=== PATIENT | female | born 2000 | race Two or more races ===

== ENCOUNTER 2024-10-30 00:45 | Inpatient (IN) | payer MEDICAID, SELFPAY ==
[2024-10-30] VITALS (275 sets, daily range): BP systolic 114–191; BP diastolic 57–118; PULSE 63–124; RESP 16–100; TEMP 36.4–37.1; O2SAT 86–100; BMI 30.5; BMI 30.3
[2024-10-30 03:30] LABS: Basophils % (Auto) 0 % (0-2.5); Eosinophils # (Auto) 0.1 Thou/mm3 (0.0-0.5); Eosinophils % (Auto) 1 % (0-10); Hemoglobin 9.8 g/dL (12.0-16.0); Immature Granulocytes % (Auto) 0 % (0-0); Immature Granulocytes Auto 0.03 Thou/mm3 (0.00-0.00); Lymphocytes # (Auto) 1.5 Thou/mm3 (1.0-4.8); Lymphocytes % (Auto) 20 % (10-50); Mean Corpuscular HGB Conc 30.6 g/dl (31.0-37.0); Mean Corpuscular Hemoglobin 20.9 pg (25.0-35.0); Mean Corpuscular Volume 68 fL (80-100); Monocytes # (Auto) 0.9 Thou/mm3 (0.0-0.8); Monocytes % (Auto) 12 % (0-12); Neutrophils % (Auto) 66 % (37-80); Nucleated Red Blood Cell % 0 /100 WBC (0); Platelet Count 215 Thou/mm3 (140-440); RDW Standard Deviation 44.2 fL (36.4-46.3); Red Blood Count 4.68 Miln/mm3 (4.00-5.20); White Blood Count 7.6 Thou/mm3 (3.6-11.0)
--- NOTE | 2024-10-30 04:00 | PD.LDHP ---
Documentation for date of: 10/30/24 OB Labor/Induct. HPI History of Present Illness Chief complaint: 24 y/o 39w 3d presents in early labor at 3 cm : 2 Para: 0 Term pregnancies: 0 pregnancies: 0 Living children: 0 History of Abortions: Spontaneous and Elective: 0 History of Vaginal deliveries: 0 History of sections: No History of : No Date of last menstrual period: 02/02/24 Gestational Age (weeks): 39 Gestational Age (days): 3 Gestational age based on last menstrual period: 38 History of present illness: 24 y/o 39w 3d presents in early labor at 3 cm vertex, membranes intact. GBS is neg. Pt's has been unremarkable with the exception of anemia. Pt did test + for THC early in and has discontinued use. EFW 3500g History of Present Dating criteria: LMP confirmed by 1st trimester US Adequate Care: Yes Ultrasounds: normal 1st trimester US and normal mid trimester US Obstetrical complications: other (anemia) Labs Maternal Blood Type: O Pos Labs: Positive: Rubella Titre, Negative: RPR, Hepatitis B, HIV, Chlamydia, Gonorrhea and Group Beta Strep and Unknown: Herpes Type 1, Herpes Type 2 and Covid-19 Review of Systems Review of Systems Systems Reviewed: All systems reviewed, normal except as documented Past Medical History Surgical History SURGICAL: Negative Section Meds Home Medications and Allergies Allergies Allergy/AdvReac Type Severity Reaction Status Date / Time NKA* Allergy Uncoded 03/25/24 09:51 OB Exam Physical Exam Vital signs: Temp Pulse Resp BP Pulse Ox O2 Del Method 97.6 F 63 18 115/57 L 99 Room Air 10/30/24 01:28 10/30/24 06:57 10/30/24 02:38 10/30/24 06:57 10/30/24 01:28 10/30/24 01:28 Constitutional Constitutional: no acute distress Routine HEENT Exam Head: Present normocephalic and atraumatic Eye: Present EOMI, PERRL and normal accommodation ENT: Present mucous membranes moist Routine Neck Exam Neck: Present supple, full ROM and trachea midline Routine Respiratory Exam Respiratory: Absent respiratory distress Routine Cardiovascular Exam Cardiovascular: Present RRR Routine Abdominal Exam Abdominal: Present soft Comments: Gravid Uterus EFW 3500g Routine Exam External: Present normal urethra appearance; Absent lesions or lacerations Detailed Labor and Delivery Exam Dilation (cm): 3 Effacement (%): 70 Cervix position: posterior station: -3 Consistency: soft Presentation: Vertex Membranes: intact Amniotic fluid: clear Routine Extremities Exam Extremities: Present full ROM Routine Back/Spine/Pelvis Exam Back/Spine: Present full ROM Routine Skin Exam Skin: Present intact, dry and warm Routine Neurological Exam Neurological: Present alert, oriented X3 and CN II-XII intact Routine Psychiatric Exam Psychiatric: Present normal affect and normal thought process OB Results Labs 10/30/24 02:25 Labs: Short CBC 10/30/24 Range/Units 02:25 WBC 7.6 (3.6-11.0) Thou/mm3 Hgb 9.8 L (12.0-16.0) g/dL Hct 32.0 L (36.0-46.0) % Plt Count 215 (140-440) Thou/mm3 OB Assessment & Plan Assessment and Plan (1) Normal labor: Status: Acute (2) Anemia affecting in third trimester: Status: Acute (3) with 39 completed weeks gestation: Status: Acute Additional Plan Induction method: none Plan: augmentation, anticipate NVD and consult prangel Additional Plan Comment: Routine admit orders Consult anesthesia for an epidural Continuous EFM
[2024-10-30] MEDS: fentaNYL CIT INJ 50 mCg/ML AMP 2ML 100 MCG IV ×3 (04:03→19:10)
[2024-10-30 04:34] LABS: Syphilis Nonreactive (Nonreactive)
[2024-10-30] MEDS: RINGERS LACTATED 1000 ML 1,000 ML 100 ML IV ×3 (07:30→12:09)
--- NOTE | 2024-10-30 07:40 | PD.LDPN ---
Documentation for date of: 10/30/24 OB Labor Progress Note Pain Control Pain control: other (Requesting an epidural) Pelvic Exam Dilation (cm): 4 Effacement (%): 80 station: 0 Amniotic membrane status: Ruptured (AROM performed- clear fluids) Contractions Monitor mode: External Contraction frequency: 2-3 Contraction duration: 40-60 Contraction phase: Contraction Contraction intensity: Moderate Status status: Category l Assessment and Plan Assessment: other (Latent labor) Plan OB labor note: continuous present management Comments: AROM performed- clear fluids Consult anesthesia for an epidural Anticipate
[2024-10-30 10:56] LABS: Amphetamine/Metham Scrn,Ur OB Negative (Negative); Benzoylecgonine Screen, Ur OB Negative (Negative); Opiate Screen,Urine OB Negative (Negative); THC Screen,Urine OB Negative (Negative)
[2024-10-30] MEDS: LABETALOL INJ 5 MG/ML VIAL 20 ML 20 MG IVP (16:59)
--- NOTE | 2024-10-30 17:18 | ESPR_ITS ---
<Statement entered by Adarsh Terrell MD - 10/31/24 13:56> No information regarding the IV labetalol or BP was discussed with me untoil 2 hours after the labetalol was given. please see my note for details Documentation for date of: 10/30/24 OB Labor Progress Note Pain Control Pain control: epidural Pelvic Exam Dilation (cm): 5 Effacement (%): 90 station: 0 Amniotic membrane status: Ruptured (AROM performed- clear fluids) Contractions Monitor mode: External Contraction frequency: 2-3 Contraction duration: 40-80 Contraction phase: Contraction Contraction intensity: Moderate Status status: Category l Assessment and Plan Assessment: other (Latent labor) Plan OB labor note: begin Pitocin augmentation Comments: Pt is still uncomfortable, call Fortino to bolus or replace epidural If contractions space out, low dose pitocin per protocol IV labetalol protocol ordered for elevated BPs PIH labs ordered Anticipate
[2024-10-30 17:59] LABS: Collection Type, Urine Catheter; Squamous Epithelial Cell,Urine 0 /hpf (0-5)
[2024-10-30 18:02] LABS: Basophils % (Auto) 0 % (0-2.5); Eosinophils % (Auto) 0 % (0-10); Hematocrit 29.4 % (36.0-46.0); Immature Granulocytes % (Auto) 1 % (0-0); Immature Granulocytes Auto 0.07 Thou/mm3 (0.00-0.00); Lymphocytes # (Auto) 0.8 Thou/mm3 (1.0-4.8); Lymphocytes % (Auto) 6 % (10-50); Mean Corpuscular HGB Conc 30.6 g/dl (31.0-37.0); Mean Corpuscular Hemoglobin 21.2 pg (25.0-35.0); Mean Corpuscular Volume 69 fL (80-100); Monocytes # (Auto) 1.1 Thou/mm3 (0.0-0.8); Monocytes % (Auto) 8 % (0-12); Neutrophils # (Auto) 11.4 Thou/mm3 (1.8-7.7); Neutrophils % (Auto) 85 % (37-80); Nucleated Red Blood Cell % 0 /100 WBC (0); Platelet Count 177 Thou/mm3 (140-440); Red Blood Count 4.24 Miln/mm3 (4.00-5.20); White Blood Count 13.4 Thou/mm3 (3.6-11.0)
[2024-10-30 18:03] LABS: Bilirubin,Urine Negative (Negative); Blood,Urine Negative (Negative); Clarity,Urine Clear (Clear/Hazy); Color,Urine Colorless (Lt Yel-Yel); Glucose, Urine Negative (Negative); Ketones,Urine 1+ (Negative); Leukocyte Esterase,Urine Negative (Negative); Nitrite,Urine Negative (Negative); PH,Urine 6.5 (5.0-7.0); Protein,Urine Negative (Neg - Trace); RBC,Urine 1 /hpf (0-3); Specific Gravity,Urine 1.006 (1.001-1.035); Urobilinogen,Urine Negative mg/dL (0.0-1.0); WBC,Urine 1 /hpf (0-5)
[2024-10-30 19:03] LABS: Alanine Aminotransferase < 7 U/L (10-49); Albumin, Serum 3.9 gm/dL (3.5-5.0); Albumin/Globulin Ratio 1.7 (1.2-2.2); Alkaline Phosphatase 182 U/L (46-116); Anion Gap 12 (7-16); Aspartate Amino Transferase 16 U/L (0-34); BUN/Creatinine Ratio 16 Ratio (12-20); Bilirubin,Total 0.4 mg/dL (0.3-1.2); Blood Urea Nitrogen 8 mg/dL (9-23); Calcium 8.8 mg/dL (8.3-10.6); Calcium (Corrected) 8.9 mg/dL (8.5-10.1); Carbon Dioxide 20.7 mMol/L (20.0-31.0); Chloride 106 mMol/L (98-107); Creatinine (Component) 0.5 mg/dL (0.6-1.3); Globulin 2.3 gm/dL (2.3-3.5); Glucose 80 mg/dL (74-106); Osmolality,Calculated 274 (275-295); Potassium 3.4 mMol/L (3.4-5.1); Sodium 139 mMol/L (136-145); Total Protein 6.2 gm/dL (5.7-8.2); Uric Acid 5.1 mg/dL (3.1-7.8); eGFR > 60 See Note
[2024-10-30 19:14] LABS: Fibrinogen 515 mg/dL (175-375); INR 0.9 (0.9-1.3); Partial Thromboplastin Time 25.4 Seconds (22.0-36.0)
[2024-10-30 19:34] LABS: LDH (Lactate Dehydrogenase) 181 U/L (120-246)
[2024-10-30] MEDS: Magnesium Sulfate 2 GM Ivpb 2 GM/50 ML BAG IV (19:36)
[2024-10-30] MEDS: Magnesium Sulfate 4 GM Ivpb 4 GM/50 ML BAG IV (19:49)
[2024-10-30] MEDS: LABETALOL 100 MG TABLET 200 MG PO (20:07)
[2024-10-30] MEDS: ONDANSETRON INJ 2 MG/ML INJ 2 ML 4 MG IV (20:09)
[2024-10-30] MEDS: MAGNESIUM SULF 20 GM IVPB 20 GM/500 ML BAG IV (20:21)
[2024-10-30] MEDS: OXYTOCIN in NS 30 units 30 UNIT/500 ML BAG IV (20:30)
--- NOTE | 2024-10-30 21:11 | PD.LDPN ---
Documentation for date of: 10/30/24 OB Labor Progress Note Pelvic Exam Dilation (cm): 5 Effacement (%): 90 station: 0 Amniotic membrane status: Ruptured (AROM performed- clear fluids) Contractions Monitor mode: External Contraction frequency: 2-3 Contraction phase: Contraction Contraction intensity: Moderate Status status: Category l CNM Management Details of MD consultation: I recieved a call from MILDRED Vázquez @7pm regarding Severe range BP of lake and that she was given labetalol IV at 4.59 pm.This is the first time I got a communication about the patient care. Per the provider, this patient came in labor , at 7.30 am arom was performed and she was 4 cm. Most recent check is 5 cm. Lake has not been started on pitocin as she was having difficulty controlling pain , inspite of bolusing epidural. Until this point, No communication was made with me about IV meds and it was per her midwives order that the patinet was gievn Labtalol IV.Per provider ,this patient has never had any HTN , so most likely it was pain related I reviewed the BP reading with lyndon RN. Persistent severe range BP were seen, from 1635 TO 1659. Preclampsia labs were normal upon review. Preeclampsia cannot be excluded , IV meds has already controlled BP, Labetalol oral added for control of BP Magnesium to be started for seizure prophylaxis Immediate start of pitocin with IUPC monitoring MVUs for appropriate monitoring of labor was ordered. In case of no cervical change at 12 hours of pitocin and AROM, failed IOL can be diagnosed , however currently as pitocin was never started , Failed IOL cannot be diagnosed
[2024-10-31] VITALS (77 sets, daily range): BP systolic 104–154; BP diastolic 55–88; PULSE 82–146; RESP 16–18; TEMP 36.6–37.1; O2SAT 98–100
[2024-10-31] MEDS: OXYTOCIN in NS 20 units 20 UNIT/1,000 ML BAG 125 UNIT IV (02:04)
[2024-10-31 02:11] LABS: Magnesium 4.4 mg/dL (1.6-2.6)
--- NOTE | 2024-10-31 02:15 | OBDSUM_ITS ---
Data (Chen) Data Hx Section: No Maternal Blood Type: O Pos Rubella Titre: Positive RPR: Non-reactive Labs: Negative: RPR, Hepatitis B, HIV, Chlamydia, Gonorrhea and Group Beta Strep and Unknown: Herpes Type 1 and Herpes Type 2 : 2 Para: 0 Term: 0 : 0 Livin : 1 Delivery Data (Chen) Labor Data Stimulated/Augmented: Yes Induction: No Method: Oxytocin ROM Date: 10/30/24 ROM Time: 07:38 Rupture Type: AROM Amniotic Fluid: Clear Delivery Data EDC: 11/03/24 EDC calculated by:: LMP/early US confirmation Labor Onset Stage 1 Date: 10/30/24 Labor Onset Stage 1 Time: 07:38 Labor Onset Stage 2 Date: 10/30/24 Labor Onset Stage 2 Time: 19:00 Delivery Date: 10/31/24 Delivery Time: 02:01 Gestational age (weeks): 39 Gestational age (days): 4 Placenta Delivery Date: 10/31/24 Placenta Delivery Time: 02:03 Delivered by: Kathie Govea Delivery nurse: Rebecca Perry Transfer Car Operator Drier at delivery: No Support person(s) at delivery: DICK Other staff at delivery: Nurse Other staff at delivery: Nurse Other staff at delivery: Angie Nicholson Other staff at delivery: Jeri Mccollum Delivery Method Delivery: Vaginal Delivery Type: Spontaneous Presentation: Vertex Position: OA Anesthesia Type Primary Anesthesia: Epidural Delivery Room Medications Other Intrapartum Medications: No Post Delivery Medications N/A: No Placenta Placenta Delivery: Spontaneous Placenta Cultures Obtained: No Placenta Sent for Examination: No Cord Sample: Cord Blood Obtained Episiotomy Episiotomy: None Lacerations #1: Vaginal: 1st degree Labial: Right Perineal repair Sutures used for repair: 3.0 Chromic (CT and 4.0 SH) EBL Estimated blood loss (ml): 100 Umbilical Cord Umbilical Vessels: 3 Nuchal Cord: Not Applicable Body Cord: Not Applicable Additional Procedures Patient was when CNM walked in after a couple of pushes had an of a viable female infant. 's anterior shoulder delivered with gentle downward traction subsequent deliver the posterior shoulder and the body without complications. placed on mother's abdomen. Vigorous cry upon delivery. Cord was clamped. Cord blood obtained. Three-vessel cord noted. Placenta expelled spontaneously and intact. Patient sustained a first-degree vaginal laceration repaired using a 3-[address] and and also a small tear on the right labia which was repaired using a 4-0 chromic on an SH. Perineum intact. Excellent hemostasis achieved after vigorous fundal massage and removal of clots from the posterior fornix. EBL 100. Sponge and needle count correct. Mother and baby stable, skin to skin and bonding in LDR. Harrison Data (Chen) Harrison Data Infant Gender: Female Weight Grams: 3255 1 Minute Total: 8 5 Minute Total: 9
[2024-10-31] MEDS: TRANEXAMIC ACID 1,000 MG IVPB 1,000 MG/100 ML BAG 200 MG IV (02:28)
[2024-10-31] MEDS: BENZO/LANO/ALOE (Dermoplast) 60 GM CAN 1 SPRAY TOP (02:29)
[2024-10-31] MEDS: MINERAL OIL 30 ML UDC TOP (02:29)
[2024-10-31 04:09] LABS: Magnesium 4.3 mg/dL (1.6-2.6)
[2024-10-31] MEDS: IBUPROFEN TAB 400 MG TABLET 800 MG PO ×2 (04:21→14:24)
[2024-10-31] MEDS: MAGNESIUM SULF 20 GM IVPB 20 GM/500 ML BAG IV ×2 (04:42→16:08)
[2024-10-31] MEDS: DOCUSATE SOD 100 MG CAPSULE PO (08:24)
--- NOTE | 2024-10-31 10:02 | PC.SS ---
CASH ANALYST conducted bedside contact with the patient to address nursing referral indicating patient possessed history of THC use during pre-. CASH ANALYST introduced self and role. Present with patient was FOB, Luiz Monique. Patient gave permission for FOB to be present during discussion. CASH ANALYST disclosed basis of referral. Patient confirmed use of THC for recreational purposes. Patient stated that once confirmed THC use ceased. Moving forward, patient does not plan on using THC. [place], Alana; is the patient?s first child. delivered naturally. 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 Patient is aligned with [place] and [employer]. Patient is not receiving TANF. Patient denies history of alcohol/drug abuse. Patient denies CWS intervention. Patient denies episodes of domestic violence. Kathie Govea provided OB services. Patient states consistency with OB appointments. Patient denies possessing history of mental health. Patient has access to appropriate supplies and equipment. FOB will provide transportation upon discharge. Patient describes possessing support system consisting of FOB and family. CASH ANALYST provided community resource information to include: Warm Line and [facility]. No further intervention required at this time, social science manager will be available to address any further concerns. CASH ANALYST updated bedside nurse.
[2024-10-31 10:10] LABS: Basophils % (Auto) 0 % (0-2.5); Eosinophils % (Auto) 0 % (0-10); Hematocrit 28.7 % (36.0-46.0); Hemoglobin 8.9 g/dL (12.0-16.0); Immature Granulocytes % (Auto) 1 % (0-0); Immature Granulocytes Auto 0.11 Thou/mm3 (0.00-0.00); Lymphocytes # (Auto) 1.2 Thou/mm3 (1.0-4.8); Lymphocytes % (Auto) 6 % (10-50); Mean Corpuscular Hemoglobin 21.2 pg (25.0-35.0); Mean Corpuscular Volume 69 fL (80-100); Monocytes # (Auto) 1.3 Thou/mm3 (0.0-0.8); Monocytes % (Auto) 7 % (0-12); Neutrophils # (Auto) 16.2 Thou/mm3 (1.8-7.7); Neutrophils % (Auto) 86 % (37-80); Nucleated Red Blood Cell % 0 /100 WBC (0); Platelet Count 176 Thou/mm3 (140-440); RDW Standard Deviation 45.1 fL (36.4-46.3); Red Blood Count 4.19 Miln/mm3 (4.00-5.20); White Blood Count 18.8 Thou/mm3 (3.6-11.0)
[2024-10-31 10:20] LABS: Magnesium 4.6 mg/dL (1.6-2.6)
[2024-10-31] MEDS: RINGERS LACTATED 1000 ML 1,000 ML 75 ML IV (15:42)
[2024-10-31] MEDS: HYDROcodone/APAP 5/325 TABLET 1 TAB PO (22:18)
[2024-10-31 22:22] LABS: Magnesium 4.8 mg/dL (1.6-2.6)
[2024-11-01 00:12] VITALS: BP 107/64; PULSE 82; RESP 17; TEMP 36.7; O2SAT 100
[2024-11-01 01:09] VITALS: BP 123/77; PULSE 85; RESP 16; TEMP 36.9; O2SAT 100
[2024-11-01 02:29] VITALS: BP 111/71; PULSE 75; RESP 16; TEMP 36.7; O2SAT 99
[2024-11-01 03:30] LABS: Magnesium 4.3 mg/dL (1.6-2.6)
--- NOTE | 2024-11-01 07:17 | PD.LDDS ---
DS: Providers Provider Date of admission: 10/30/24 02:01 Primary care physician: Physician No Primary/Family Admitting Provider: Adarsh Terrell MD Attending Provider on Admission: Kathie Govea CNM Consults: 10/30/24 02:05 Consult to Anesthesiology Routine Comment: Consulting Provider: Adarsh Terrell Attending Provider on DC: Kathie Govea CNM Discharging Provider: Kathie Govea CNM Anticipated date of discharge: 11/01/24 DS: Diagnosis Discharge Diagnosis (1) Normal spontaneous vaginal delivery: Status: Acute (2) Encounter for care of lactating mother: Status: Acute (3) Anemia affecting in third trimester: Status: Acute (4) with 39 completed weeks gestation: Status: Acute (5) Normal labor: Status: Acute Problem List Completed Was Problem List Reviewed/Reconciled?: Yes Summary/Hosp Course Brief History: 24 y/o 39w 3d presents in early labor at 3 cm vertex, membranes intact. GBS is neg. Pt's has been unremarkable with the exception of anemia. Pt did test + for THC early in and has discontinued use. EFW 3500g 10/31/24: Patient was when CNM walked in after a couple of pushes had an of a viable female . 's anterior shoulder delivered with gentle downward traction subsequent deliver the posterior shoulder and the body without complications. Infant placed on mother's abdomen. Vigorous cry upon delivery. Cord was clamped. Cord blood obtained. Three-vessel cord noted. Placenta expelled spontaneously and intact. Patient sustained a first-degree vaginal laceration repaired using a 3-[address] and and also a small tear on the right labia which was repaired using a 4-0 chromic on an SH. Perineum intact. Excellent hemostasis achieved after vigorous fundal massage and removal of clots from the posterior fornix. EBL 100. Sponge and needle count correct. Mother and baby stable, skin to skin and bonding in LDR. 11/01/24: Patient is stable and afebrile doing well denies dizziness shortness of breath complains of just some redness. Uterus is nontender and fundus firm and GERD. Discharge directions given. Patient to follow-up with Kathie Govea CNM in 3 weeks . Peripartum Data Delivery Method: Normal Vaginal Delivery Episiotomy Description: None Laceration Description: yes and see Delivery Summary complications: none 1: Gender: Female Disposition of : home Status at Discharge Cognitive/behavioral status at discharge: alert and oriented x 3 Functional status at discharge: independent ambulation Overall status at discharge: patient is progressing back to baseline Time Spent with Patient Time attestation: Total time spent providing and/or coordinating discharge services: Time spent: Greater than 30 minutes Exam Vital Signs Temp Pulse Resp BP Pulse Ox O2 Del Method 98.3 F 123 H 18 141/78 H 100 Room Air 10/31/24 01:28 10/31/24 02:10 10/30/24 16:00 10/31/24 02:10 10/31/24 02:20 10/30/24 01:28 Constitutional Constitutional: no acute distress Routine HEENT Exam Head: Present normocephalic and atraumatic Eye: Present EOMI, PERRL and normal accommodation ENT: Present mucous membranes moist Routine Neck Exam Neck: Present supple, full ROM and trachea midline Routine Respiratory Exam Respiratory: Present chest non-tender, lungs clear, normal breath sounds and no resp distress Routine Cardiovascular Exam Cardiovascular: Present RRR Routine Abdominal Exam Abdominal: Present soft and normoactive bowel sounds Comments: Uterus non-tender Fundus firm Routine Exam Patient deferred: external exam Routine Extremities Exam Extremities: Present full ROM Routine Skin Exam Skin: Present intact, dry and warm Routine Neurological Exam Neurological: Present alert, oriented X3 and CN II-XII intact Routine Psychiatric Exam Psychiatric: Present normal affect and normal thought process Discharge Plan Plan Patient Disposition: HOME (Self Care) Patient condition on transfer: Stable Prescriptions/Referrals Prescriptions/Med Rec: New ibuprofen 800 mg tablet 800 mg PO Q6H MDD 4 PRN (Reason: pain) Qty: 120 0RF docusate sodium [Colace] 100 mg capsule 100 mg PO BID Qty: 60 0RF lanolin 50 % ointment 1 applic topical TID PRN (Reason: skin irritation) Qty: 15 0RF Referrals: No Primary/Family,Physician [Primary Care Provider] - Patient/Caregiver Discharge Instructions Meds to Beds: No Discharge Activity: activity as tolerated Other Discharge Activity Instructions:: Follow-up with Kathie Govea CNM in 3 weeks Education Materials: After a Vaginal , After Delivery Concerns, : Caring for Yourself Print Language: Danish Stand Alone Forms: Cristela Award Info., Patient Portal Info Letter Discharge Order Discharge Orders: Discharge (Routine); Ordered 11/01/24 Ordered By: Kathie Govea Planned Discharge Date 11/01/24
[2024-11-01 08:05] VITALS: BP 123/82; PULSE 96; RESP 18; TEMP 37.1; O2SAT 99
[2024-11-01] MEDS: DOCUSATE SOD 100 MG CAPSULE PO (08:39)
[2024-11-01] MEDS: IBUPROFEN TAB 400 MG TABLET 800 MG PO (08:40)
== END 2024-11-01 14:25 | disposition home or self-care (01) | DRG 560 ==
LOC: S4SX 10-31 02:29 → S4NX 10-31 04:15
PROVIDERS: Admitting Provider Student in an Organized Health Care Education/Training Program; Visit Provider Nurse Practitioner Women's Health
DX: O99.02 Anemia complicating childbirth (principal); Z37.0 Single live birth; Z3A.39 39 weeks gestation of pregnancy; O70.0 First degree perineal laceration during delivery
CPT/HCPCS: 36415; 59025; 59409; 80053; 80307; 81001; 83615; 83735; 84550; 85025; 85384; 85610; 85730; 86780; 86850; 86900; 86901; 94762; J2405; J2590; J2795; J3010; J3475; J3490; J7120; A9270; J1920

== ENCOUNTER 2025-06-21 07:45 | Emergency (ER) | payer MEDICAID, SELFPAY ==
[2025-06-21 07:45] VITALS: BMI 27.4
[2025-06-21 08:22] VITALS: BP 115/77; PULSE 92; RESP 18; TEMP 36.5; O2SAT 99
--- NOTE | 2025-06-21 08:35 | XR_ITS ---
Examination: OB Transvaginal ultrasound of the pelvis, complete Technique: Transvaginal sonographic images pelvis performed using solomon scale imaging Exam date and time:06/21/2025 0930 hours Indications: pelvic cramping and bleeding today Findings: Viable intrauterine gestation transverse presentation Cardiac motion 159 bpm Placenta posterior no abruption Umbilical cord insertion seen ZACARIAS 6.5 Ovaries obscured by bowel gas EGA: 15 weeks 6 days, EFW 142 gms Impression: Viable intrauterine gestation transverse presentation
--- NOTE | 2025-06-21 08:36 | PD.EDRME ---
Rapid Medical Screening Exam E Arrival date/time: 06/21/25 07:45 This is a 25-year-old female that comes into the emergency room with complaints of abdominal pain. Patient states she took a test 2 weeks ago and it was positive. Patient states she is also having vaginal bleeding. Patient states her period is very irregular so she does not know how far along she is. Patient is a 3 para 1 and had 1 miscarriage previously. I have greeted and performed a focused initial assessment of this patient. Initial appropriate labs ordered at this time. A comprehensive ED assessment and evaluation of the patient and analysis of all test and completion of medical decision making process will be conducted by additional ED provider. Chief Complaint: Urogenital-Female Time Seen by Provider: 06/21/25 08:00 Vital signs: Vital Signs Temperature 97.7 F 06/21/25 08:22 Pulse Rate 92 06/21/25 08:22 Respiratory Rate 18 06/21/25 08:22 Blood Pressure 115/77 06/21/25 08:22 Pulse Oximetry (%) 99 06/21/25 08:22 Oxygen Delivery Method Room Air 06/21/25 08:22
[2025-06-21 09:30] LABS: Collection Type, Urine Voided
[2025-06-21 10:02] LABS: Bilirubin,Urine Negative (Negative); Blood,Urine Negative (Negative); Clarity,Urine Clear (Clear/Hazy); Color,Urine Lt-Yellow (Lt Yel-Yel); Culture Indicated,Urine Not Indicated; Glucose, Urine Negative (Negative); Ketones,Urine Negative (Negative); Leukocyte Esterase,Urine Negative (Negative); Nitrite,Urine Negative (Negative); PH,Urine 7.0 (5.0-7.0); Protein,Urine Negative (Neg - Trace); RBC,Urine 3 /hpf (0-3); Specific Gravity,Urine 1.023 (1.001-1.035); Squamous Epithelial Cell,Urine 6 /hpf (0-5); Urobilinogen,Urine Negative mg/dL (0.0-1.0); WBC,Urine 5 /hpf (0-5)
[2025-06-21 10:06] LABS: Sperm,Urine Present
[2025-06-21 10:22] LABS: Basophils # (Auto) 0.0 Thou/mm3 (0.0-0.2); Basophils % (Auto) 0 % (0-2.5); Eosinophils # (Auto) 0.1 Thou/mm3 (0.0-0.5); Eosinophils % (Auto) 2 % (0-10); Hematocrit 35.0 % (36.0-46.0); Hemoglobin 10.7 g/dL (12.0-16.0); Immature Granulocytes Auto 0.04 Thou/mm3 (0.00-0.00); Lymphocytes # (Auto) 1.5 Thou/mm3 (1.0-4.8); Lymphocytes % (Auto) 20 % (10-50); Mean Corpuscular HGB Conc 30.6 g/dl (31.0-37.0); Mean Corpuscular Hemoglobin 23.9 pg (25.0-35.0); Mean Corpuscular Volume 78 fL (80-100); Monocytes # (Auto) 0.6 Thou/mm3 (0.0-0.8); Monocytes % (Auto) 8 % (0-12); Neutrophils # (Auto) 5.3 Thou/mm3 (1.8-7.7); Neutrophils % (Auto) 70 % (37-80); Nucleated Red Blood Cell # 0.00 Thou/mm3 (0.00-0.00); Nucleated Red Blood Cell % 0 /100 WBC (0); Platelet Count 206 Thou/mm3 (140-440); RDW Standard Deviation 44.6 fL (36.4-46.3); Red Blood Count 4.48 Miln/mm3 (4.00-5.20); White Blood Count 7.6 Thou/mm3 (3.6-11.0)
[2025-06-21 10:54] LABS: Albumin, Serum 4.2 gm/dL (3.5-5.0); Albumin/Globulin Ratio 1.9 (1.2-2.2); Alkaline Phosphatase 73 U/L (46-116); Anion Gap 13 (7-16); Aspartate Amino Transferase 13 U/L (0-34); BUN/Creatinine Ratio 10 Ratio (12-20); Bilirubin,Total 0.5 mg/dL (0.3-1.2); Blood Urea Nitrogen < 5 mg/dL (9-23); Calcium 9.6 mg/dL (8.3-10.6); Calcium (Corrected) 9.6 mg/dL (8.5-10.1); Carbon Dioxide 21.5 mMol/L (20.0-31.0); Chloride 103 mMol/L (98-107); Creatinine (Component) 0.5 mg/dL (0.6-1.3); Estimated Creatinine Clearance 156.9 mL/min (>60); Globulin 2.2 gm/dL (2.3-3.5); Glucose 73 mg/dL (74-106); Osmolality,Calculated 270 (275-295); Potassium 4.0 mMol/L (3.4-5.1); Sodium 137 mMol/L (136-145); Total Protein 6.4 gm/dL (5.7-8.2); eGFR > 60 See Note
[2025-06-21 11:27] LABS: Alanine Aminotransferase < 7 U/L (10-49); Beta HCG,Quantitative 17982 mIU/mL (<5.0)
--- NOTE | 2025-06-21 12:29 | EDNOTE_ITS ---
ED Female Urogenital RME/HPI General Chief complaint: Urogenital-Female Stated complaint: VAGINAL BLEEDING TODAY AND + PREG Time Seen by Provider: 06/21/25 08:00 Arrival date/time: 06/21/25 07:45 RME / HPI RME / HPI Narrative: 25-year-old female 3 para 1 1 that comes into the emergency room with complaints of abdominal pain. Patient states she took a test 2 weeks ago and it was positive. Patient states she is also having vaginal spotting, severity mild since 2 days ago. Patient states her period is very irregular so she does not know how far along she is. Denies any other complaints. Patient is not wearing any panty liner or pads. Related Data Previous Rx's ?Medication ?Instructions ?Recorded docusate sodium 100 mg capsule 100 mg PO BID #60 caps 11/01/24 (Colace) ibuprofen 800 mg tablet 800 mg PO Q6H PRN pain #120 tabs 11/01/24 lanolin 50 % topical ointment 1 applic topical TID PRN skin 11/01/24 irritation #15 tubes Allergies Allergy/AdvReac Type Severity Reaction Status Date / Time No Known Allergies Allergy Unverified 06/21/25 07:47 Review of Systems Review of Systems Narrative Review of Systems: Review of system reviewed and within normal limits except mentioned in HPI ED Exam Narrative Physical exam: VITAL SIGNS: Reviewed. GENERAL APPEARANCE: Alert and interactive, follows commands, no acute distress, HEAD AND FACE: Non-traumatic. ENT: PERRL, pink conjunctivitis, eyelid no trauma, Mucous membrane moist. NECK: Supple, nontender, no nuchal rigidity. CHEST: No tenderness, no crepitus, no paradoxical movement, no retractions. LUNGS: Clear, well ventilated, symmetric, no rales, no wheezing, no ronchi, no stridor, good breath sounds bilaterally. HEART: Regular rate, regular rhythm, no murmur, no gallops. ABDOMEN: Soft, positive bowel sounds, nondistended, no guarding, nontender, no rebound, no masses, RECTAL: Deferred. GENITAL: Deferred. NEUROLOGICAL: Gross motor function intact sensory function intact, Appropriate for age. MUSCULOSKELETAL: low back nontender, full range of motion. EXTREMITIES: Nontender, full range of motion. SKIN: Color pink, dry, no rash, no lacerations, no abrasions, no contusions. LYMPHATICS: Deferred. Course Quality Measures none Orders Category Date Time Status US OB transvaginal Stat Exams 06/21/25 08:35 Completed ABO/RH Type - Stat Lab 06/21/25 09:46 Completed Beta HCG,Quantitative Stat Lab 06/21/25 09:46 Completed CBC Stat Lab 06/21/25 09:46 Completed Comprehensive Metabolic Panel Stat Lab 06/21/25 09:46 Completed Urinalysis, C/S if Indicated Stat Lab 06/21/25 09:15 Completed Vital Signs Vital signs: Vital Signs Temperature 97.7 F 06/21/25 08:22 Pulse Rate 92 06/21/25 08:22 Respiratory Rate 18 06/21/25 08:22 Blood Pressure 115/77 06/21/25 08:22 Pulse Oximetry (%) 99 06/21/25 08:22 Oxygen Delivery Method Room Air 06/21/25 08:22 Urogenital - Female MDM Narrative MDM Narrative:: 25-year-old female 3 para 1 1 that comes into the emergency room with complaints of abdominal pain. Patient states she took a test 2 weeks ago and it was positive. Patient states she is also having vaginal spotting, severity mild since 2 days ago. Patient states her period is very irregular so she does not know how far along she is. Denies any other complaints. Patient is not wearing any panty liner or pads. Patient's laboratory workup including urinalysis all came back unremarkable.. Patient's hCG today was noted to be 17 982 urinalysis no UTI ultrasound of the showed single live intrauterine gestation about 15 weeks and 6 days old. No other abnormality noted. Results discussed with the patient. Patient was advised to do pelvic rest no sex for 1 week or other cleared by TRANSITIONS RN CARE COORDINATOR. Patient was also given a work note for few days. She will see her TRANSITIONS RN CARE COORDINATOR next week. Patient data External records reviewed:: None Clinical information provided by:: patient Social determinants that could affect healthcare access:: none Patient has the following chronic illnesses:: None How is presenting disease/condition affected by chronic disease/condition?: no chronic disease Evaluation data The following diagnostics were reviewed and interpreted by me:: lab results and radiology exam(s) Lab and/or radiology exams considered but not ordered:: None Interpretation Summary: See results MDM Medications / Prescriptions Medications or Prescriptions considered but not ordered:: None Medication administrations:: None Consultations Consultation(s) initiated? (list below): No Diagnosis Urogenital Female Differential Diagnosis: urinary tract infection, vaginitis and other (Threatened , incomplete , general spotting, ) Most likely diagnosis given after review of the tests above:: Vaginal spotting, 15 weeks Admission Indicated Admission indicated?: not indicated Explain why admission is indicated or not indicated:: Stable Admission Request Was there a request for admission?: No Disposition Plan Disposition Plan: Discharge Discharge Attestation Discharge Attestation: The patient was given an opportunity to ask questions and understood the discharge instructions. Discharge instructions specifically effects, indications for sooner follow up or return to the emergency department, and the expected course of current diagnosis. Patient condition: Stable Discharge Plan Plan Patient Disposition: HOME (Self Care) Discharge Disposition comment: Stable Prescriptions/Referrals Prescriptions/Med Rec: No Action ibuprofen 800 mg tablet 800 mg PO Q6H MDD 4 PRN (Reason: pain) Qty: 120 0RF docusate sodium [Colace] 100 mg capsule 100 mg PO BID Qty: 60 0RF lanolin 50 % ointment 1 applic topical TID PRN (Reason: skin irritation) Qty: 15 0RF Referrals: Saad Gentile MD [Primary Care Provider, Family Practice] - In 1 week Problem List Clinical Impression: Vaginal spotting, and not yet delivered in second trimester Patient/Caregiver Discharge Instructions Discharge Activity: activity as tolerated Education Materials: What Is Care? Additional Instructions: Thank you for the opportunity for serving you today. You are stable for discharged . You are advised to: Follow-up with your TRANSITIONS RN CARE COORDINATOR as instructed Return to ED for worsening of symptoms Increase oral fluids Pelvic rest no sex for 1 regarding to cleared by TRANSITIONS RN CARE COORDINATOR Print Language: Citizen Of [place] Stand Alone Forms: Cristela Award Info., Work/School Release, Patient Portal Info Letter APTY/VIANEY Supervising Physician MICAH Supervising Physician: MD Anni
== END 2025-06-21 12:45 | disposition home or self-care (01) ==
PROVIDERS: Nurse Practitioner Family; Emergency Provider Emergency Medicine; PCP Family Medicine
DX: O26.852 Spotting complicating pregnancy, second trimester (principal); Z3A.15 15 weeks gestation of pregnancy
CPT/HCPCS: 36415; 76817; 80053; 81001; 84702; 85025; 86900; 86901; 99283

== ENCOUNTER 2025-07-27 06:38 | Observation (INO) | payer MEDICAID, SELFPAY ==
[2025-07-27] VITALS (26 sets, daily range): BP systolic 116; BP diastolic 62; PULSE 75–96; RESP 14–98; TEMP 36.3; O2SAT 98–100; BMI 27.3
--- NOTE | 2025-07-27 07:13 | XR_ITS ---
Examination: Complete OB ultrasound greater than 14 weeks Date and time of exam: July 27, 2025, 0810 hours INDICATIONS: Right upper abdominal pain beginning 3 weeks ago. Findings: Viable intrauterine single fetus with single amniotic sac presentation breech Cardiac motion 137 bpm. Placenta posterior grade 0. Umbilical cord insertion seen. Amniotic fluid index 11.3 cm. spine maternal left. Cervix 5.3 cm. Ovaries obscured by bowel gas.. Composite estimated gestational age based on BPD, head circumference, abdominal circumference, femur length is 21 weeks 0 days. Estimated weight 413 g. Survey of intracranial anatomy, spinal anatomy, abdominal anatomy, four-chamber heart performed with no abnormalities identified. IMPRESSION: Viable intrauterine gestation in breech presentation.
--- NOTE | 2025-07-27 07:13 | XR_ITS ---
Examination: Abdomen sonogram, Limited Date and time of exam: July 27, 2025, 0824 hours INDICATIONS: Right upper abdominal pain beginning 2 weeks ago. Technique: Real-time solomon scale transabdominal sonographic images of the upper abdomen obtained. Findings: Normal gallbladder. Normal common bile duct 0.2 cm. Pancreatic head 2.6 cm. Liver 15.4 cm no liver lesions. Normal hepatopetal portal venous flow. Patent IVC. Mild to moderate right hydronephrosis IMPRESSION: Normal gallbladder Normal common bile duct Mild to moderate right hydronephrosis
--- NOTE | 2025-07-27 11:01 | PD.LDPN ---
Documentation for date of: 07/27/25 OB Labor Progress Note Assessment and Plan Comments: Triage visit Fadia is a 25yo with SIUP at approx 20wk presenting to L&D for intermittent RUQ pain. She notices the pains mostly when she is walking at work and when she rests the discomfort generally subsides. No fevers/chills. She denies diarrhea and n/v. She notes no painful/regular ctx, no vaginal bleeding, no loss of fluid. Feels movement. PMhx/PNC significant for: -Has first OB visit scheduled with Dr. German later this month (no care thus far though she had ER ultrasound 06/21 which showed SIUP at 15w6d) ROS negative other than what was described above. Vitals wnl, afebrile General: well developed, well nourished, no acute distress, conversant Cardiac: normal heart rate Lungs: breathing without distress Abdomen: soft, gravid, non-tender, no rebound or guarding Extremities: no edema BLE + doptones [place]: no ctx pattern Radiology: Gallbladder/RUQ ultrasound Examination: Abdomen sonogram, Limited Date and time of exam: July 27, 2025, 0824 hours INDICATIONS: Right upper abdominal pain beginning 2 weeks ago. Technique: Real-time solomon scale transabdominal sonographic images of the upper abdomen obtained. Findings: Normal gallbladder. Normal common bile duct 0.2 cm. Pancreatic head 2.6 cm. Liver 15.4 cm no liver lesions. Normal hepatopetal portal venous flow. Patent IVC. Mild to moderate right hydronephrosis IMPRESSION: Normal gallbladder Normal common bile duct Mild to moderate right hydronephrosis -- Examination: Complete OB ultrasound greater than 14 weeks Date and time of exam: July 27, 2025, 0810 hours INDICATIONS: Right upper abdominal pain beginning 3 weeks ago. Findings: Viable intrauterine single fetus with single amniotic sac presentation breech Cardiac motion 137 bpm. Placenta posterior grade 0. Umbilical cord insertion seen. Amniotic fluid index 11.3 cm. spine maternal left. Cervix 5.3 cm. Ovaries obscured by bowel gas.. Composite estimated gestational age based on BPD, head circumference, abdominal circumference, femur length is 21 weeks 0 days. Estimated weight 413 g. Survey of intracranial anatomy, spinal anatomy, abdominal anatomy, four-chamber heart performed with no abnormalities identified. IMPRESSION: Viable intrauterine gestation in breech presentation. Assessment: Fadia is a 25yo with SIUP at approx 20wk with intermittent RUQ pain likely 2/2 normal physiologic changes of (musculoskeletal). Normal gallbladder/RUQ ultrasound. Vitals wnl, benign exam. FHRT is Cat I. Plan: -Reassurance provided -Follow up with Dr. German as scheduled -Return precautions discussed. Kimber Gustafson MD
== END 2025-07-27 11:05 | disposition home or self-care (01) ==
PROVIDERS: Admitting Provider Obstetrics & Gynecology; Visit Provider Obstetrics & Gynecology
DX: O99.891 Other specified diseases and conditions complicating pregnancy (principal); N13.30 Unspecified hydronephrosis; Z3A.21 21 weeks gestation of pregnancy
CPT/HCPCS: 59899; 76705; 76805